=== PATIENT | female | born 2000 | race Caucasian/White ===

== ENCOUNTER 2023-02-01 08:22 | Emergency (ER) | payer OTHER, MEDICAID ==
[~2023-02-01] VITALS: Ht 160 cm; Wt 99.8 kg
[2023-02-01 08:22] VITALS: BP_SYST 144; PULSE 104; RESP 18; TEMP 97.2; O2SAT 99
[2023-02-01] MEDS ORDERED: IBUPROFEN 600 MG TABLET PO ONE (08:30)
[2023-02-01] MEDS ORDERED: TRAM50TA2 PO (09:18)
[2023-02-01] MEDS ORDERED: NAPR-688 PO (09:18)
[2023-02-01 09:32] VITALS: BP_SYST 163; PULSE 98; RESP 18; TEMP 98.2; O2SAT 97
== END 2023-02-01 09:28 | disposition home or self-care (01) ==
LOC: SED 08:22
DX: S20.212A Contusion of left front wall of thorax, initial encounter (principal); Z79.899 Other long term (current) drug therapy; V49.40XA Driver injured in collision with unspecified motor vehicles in traffic accident, initial encounter; Y93.89 Activity, other specified; Y92.89 Other specified places as the place of occurrence of the external cause; Y99.8 Other external cause status
CPT/HCPCS: 71045; 99283